=== PATIENT | female | born 1965 | race Caucasian/White ===

== ENCOUNTER 2018-09-26 15:20 | Emergency (ER) | payer BC ==
--- NOTE | 2018-09-26 17:02 | RADIOLOGY REPORT (SQ) ---
EXAM DESCRIPTION: ELBOW LEFT OVER 2 VIEWS COMPLETED DATE/TIME: 09/26/2018 4:53 pm REASON FOR STUDY: S/P fall- landed on L elbow- pain. COMPARISON: None. NUMBER OF VIEWS: Four views. TECHNIQUE: AP, lateral, and both oblique radiographic images acquired of the left elbow. LIMITATIONS: None. FINDINGS: MINERALIZATION: Normal. BONES: No acute fracture or dislocation. No worrisome bone lesions. JOINT: No effusion. SOFT TISSUES: No soft tissue swelling. No foreign body. OTHER: No other significant finding. IMPRESSION: NEGATIVE STUDY OF THE LEFT ELBOW. NO RADIOGRAPHIC EVIDENCE OF ACUTE INJURY. TECHNICAL DOCUMENTATION: JOB ID: [id number] [employer]- All Rights Reserved Reading location - IP/workstation name: [email or web address]
--- NOTE | 2018-09-26 17:21 | ER Document Report ---
HPI - HPI Patient complains to provider of: left elbow pain Time Seen by Provider: 09/26/18 17:11 Pain Level: 3 Context: Patient is a 53-year-old female presenting to the emergency department after tripping and falling down 4 stairs patient states she fell directly onto her left forearm and elbow. Patient noted immediately bruising and erythema to the area which concerned term. States she then started with some minor tingling to digits #3 and 4 on the palmar aspect. Patient denies hitting her head, denies head neck or back pain. Denies loss of consciousness. Past medical history: Patient states she had heart surgery when she was a baby. States she has had no issues since Medications: None Allergies: None Patient admits to cigarette smoking, occasional EtOH use, denies illicit drug use. - MUSCULOSKELETAL Musculoskeletal: REPORTS: Extremity pain - left forearm Past Medical History - General Information source: Patient - Social History Smoking Status: Current Every Day Smoker Chew tobacco use (# tins/day): No Frequency of alcohol use: Occasional Drug Abuse: None Lives with: Family Family History: Reviewed & Not Pertinent Patient has suicidal ideation: No Patient has homicidal ideation: No Renal/ Medical History: Denies: Hx Peritoneal Dialysis Past Surgical History: Reports: Hx Cardiac Surgery - at 6 years old Vertical Provider Document - CONSTITUTIONAL Agree With Documented VS: Yes Notes: GENERAL: Alert, interacts well. No acute distress. HEAD: Normocephalic, atraumatic. EYES: Pupils equal, round, and reactive to light. Extraocular movements intact. ENT: Oral mucosa moist, tongue midline. NECK: Full range of motion. Supple. Trachea midline. LUNGS: Clear to auscultation bilaterally, no wheezes, rales, or rhonchi. No respiratory distress. HEART: Regular rate and rhythm. No murmur ABDOMEN: Soft, non-tender. Non-distended. Bowel sounds present in all 4 quadrants. EXTREMITIES: Moves all 4 extremities spontaneously. No edema, normal radial and dorsalis pedis pulses bilaterally. No cyanosis. 5 out of 5 strength all 4 extremities, patient can abduct and adduct all 5 fingers on the left hand against resistance. Radial, ulnar, medial nerves motor and sensation intact. Scant area of erythema and bruising noted to the proximal aspect of the left forearm posteriorly. Patient has full range of motion of the elbow, shoulder, wrist left side. BACK: no cervical, thoracic, lumbar midline tenderness. No saddle anesthesia, normal distal neurovascular exam. NEUROLOGICAL: Alert and oriented x3. Normal speech. cranial nerves II through XII grossly intact. PSYCH: Normal affect, normal mood. SKIN: Warm, dry, normal turgor. - INFECTION CONTROL TRAVEL OUTSIDE OF THE [place] IN LAST 30 DAYS: No Course - Re-evaluation Re-evalutation: 09/26/18 17:29 Radial, ulnar, medial nerves intact sensation and motor. Discussed need for follow-up with primary care provider and then inevitably orthopedics. X-ray reviewed no signs of fracture, vitals reviewed, nursing notes reviewed. - Vital Signs Vital signs: Temp Pulse Resp BP Pulse Ox 98.6 F 84 16 134/89 H 97 09/26/18 15:35 09/26/18 15:35 09/26/18 15:35 09/26/18 15:35 09/26/18 15:35 Discharge - Discharge Clinical Impression: Forearm injury Qualifiers: Encounter type: initial encounter Laterality: left Qualified Code(s): S59.912A - Unspecified injury of left forearm, initial encounter Condition: Stable Disposition: HOME, SELF-CARE Instructions: Family Physicians / Practices, [facility] ([facility]) Additional Instructions: As we discussed you have been seen and treated in the emergency department for forearm injury. Your x-rays reveals no signs of fracture. Your physical exam reveals no abnormalities in any of the nerves in your upper arm. You should follow-up with your primary care provider and then your orthopedic if needed. Phone number for orthopedics will be provided in this packet. Please return to the emergency room for any other concerning symptoms. Please use medications as prescribed. Prescriptions: Ketorolac Tromethamine [Toradol 10 mg Tablet] 10 mg PO Q8HP PRN #24 tablet PRN Reason: Referrals: [facility] [Provider Group] - Follow up as needed
[2018-09-26 17:47] VITALS: BP 122/91
== END 2018-09-26 17:47 | disposition home or self-care (01) ==
LOC: ER 15:20
DX: S50.12XA Contusion of left forearm, initial encounter (principal); M25.522 Pain in left elbow; W10.9XXA Fall (on) (from) unspecified stairs and steps, initial encounter; R20.2 Paresthesia of skin; F17.210 Nicotine dependence, cigarettes, uncomplicated
CPT/HCPCS: 99283